=== PATIENT | female | born 1960 | race Caucasian/White ===

== ENCOUNTER 2017-10-13 22:55 | Emergency (ER) | payer MEDICAID ==
--- NOTE | 2017-10-13 23:10 | ED Physician Chart ---
ED Chief Complaint/HPI - Patient Information Date Seen:: 10/13/17 Time Seen:: 23:09 Chief Complaint:: Chest pain History of Present Illness:: 57 yo female had upper chest pain, chest pressure, and SOB 20 minutes ago. She had left neck pain, left shoulder pain, left upper extremity numbness and weakness in left hand for 3 months. In addition, she had low back pain for 3 years. ED Review of Systems - Review of Systems General/Constitutional: No fever Skin: No bruising Head: No headache Eyes: No pain ENT: No nasal drainage Neck: Neck pain Cardio Vascular: Chest pain, No palpitations Pulmonary: No SOB GI: No nausea, No vomiting Musculoskeletal: Bone or joint pain, Back pain Neurological: Paresthesia ED Past Medical History - Past Medical History Past Medical History: HTN, Other (low back pain) Social History: Smoker, No Alcohol, No Drug Use Surgical History: None Family Medical History - Family Member Mother History Unknown: Yes ED Physical Exam - Physical Examination General/Constitutional: Awake Head: Atraumatic Eyes: PERRL Skin: No ecchymosis ENMT: Nasal exam nl Other Neck comments:: posterior neck pain, left Spurling test positive Respiratory: No Wheeze/Rhonchi/Rales Cardio Vascular: RRR, No murmur, gallop, rubs, NL S1 S2 GI: No tenderness/rebounding/guarding Extremities: Full ROM, No edema Neuro/Psych: Alert/oriented, Normal gait ED Labs/Radiology/EKG Results - Lab Results Results: Laboratory Last Values WBC 10.1 Th/cmm (4.8-10.8) 10/13/17 23:45 RBC 4.09 Mil/cmm (3.80-5.10) 10/13/17 23:45 Hgb 12.3 gm/dL (12-16) 10/13/17 23:45 Hct 36.7 % (41.0-60) L 10/13/17 23:45 MCV 89.9 fl (81-100) 10/13/17 23:45 MCH 30.2 pg (27.0-31.0) 10/13/17 23:45 MCHC Differential 33.6 pg (28.0-36.0) 10/13/17 23:45 RDW 12.6 % (11.5-20.0) 10/13/17 23:45 Plt Count 356 Th/cmm (150-400) 10/13/17 23:45 MPV 7.6 fl 10/13/17 23:45 Neutrophils % 65.1 % (40.0-80.0) 10/13/17 23:45 Lymphocytes % 28.3 % (20.0-50.0) 10/13/17 23:45 Monocytes % 5.2 % (2.0-10.0) 10/13/17 23:45 Eosinophils % 1.3 % (0.0-5.0) 10/13/17 23:45 Basophils % 0.1 % (0.0-2.0) 10/13/17 23:45 Sodium 140 mEq/L (136-145) 10/13/17 23:45 Potassium 3.3 mEq/L (3.5-5.1) L 10/13/17 23:45 Chloride 103 mEq/L (98-107) 10/13/17 23:45 Carbon Dioxide 29.4 mEq/L (21.0-31.0) 10/13/17 23:45 Anion Gap 10.9 (7.0-16.0) 10/13/17 23:45 BUN 12 mg/dL (7-25) 10/13/17 23:45 Creatinine 0.7 mg/dL (0.6-1.2) 10/13/17 23:45 Est GFR ( Amer) > 60.0 ml/min (>90) 10/13/17 23:45 Est GFR (Non-Af Amer) > 60.0 ml/min 10/13/17 23:45 BUN/Creatinine Ratio 17.1 10/13/17 23:45 Glucose 119 mg/dL (70-105) H 10/13/17 23:45 Calcium 9.4 mg/dL (8.6-10.3) 10/13/17 23:45 Total Bilirubin 0.3 mg/dL (0.3-1.0) 10/13/17 23:45 AST 21 U/L (13-39) 10/13/17 23:45 ALT 23 U/L (7-52) 10/13/17 23:45 Alkaline Phosphatase 62 U/L (34-104) 10/13/17 23:45 Troponin I < 0.01 ng/mL (0.01-0.05) L 10/13/17 23:45 B-Natriuretic Peptide 8.3 pg/mL (5.0-100.0) 10/13/17:45 Total Protein 7.1 gm/dL (6.0-8.3) 10/13/17 Albumin 4.5 gm/dL (3.7-5.3) 10/13/17 Globulin 2.6 gm/dL 10/13/17 Albumin/Globulin Ratio 1.7 (1.0-1.8) 10/13/17: Urine Source RANDOM 10/13/17 23: Urine Color YELLOW 10/13/17: Urine Clarity CLEAR (CLEAR) 10/13/17: Urine pH 6.5 (4.6 - 8.0) 10/13/17 23: Ur Specific [place] <= 1.005 (1.005-1.030) 10/13/17 23: Urine Protein NEGATIVE mg/dL (NEGATIVE) 10/13/17: Urine Glucose (UA) NEGATIVE mg/dL (NEGATIVE) 10/13/17 23: Urine Ketones NEGATIVE mg/dL (NEGATIVE) 10/13/17 23: Urine Blood SMALL (NEGATIVE) H 10/13/17 23: Urine Nitrate NEGATIVE (NEGATIVE) 10/13/17 23: Urine Bilirubin NEGATIVE (NEGATIVE) 10/13/17 23: Urine Urobilinogen 0.2 E.U./dL (0.2 - 1.0) 10/13/17 23: Ur Leukocyte Esterase NEGATIVE (NEGATIVE) 10/13/17 23: Urine RBC 0-2 /hpf (0-5) 10/13/17 23:05 Urine WBC 2-5 /hpf (0-5) 10/13/17 23:05 Ur Epithelial Cells RARE /lpf (FEW) 10/13/17 23:05 Urine Bacteria FEW /hpf (NONE SEEN) 10/13/17 23: - Radiology Results Results: CXR: no focal consolidation C-spine X ray: mild to moderate degenerative changes especially at C7-T1 level ED Assessment - Assessment General Assessment: Cervicalgia Left cervical radiculopathy Hypertension Assessment/Comments:: CBC, CMP, Trop I, BNP, UA CXR, EKG C-spine X ray Aspirin 350mg po x 1 Hydralazine 10mg IV x 1 Amlodipine 5mg po x 1 Toradol 30mg IM x 1 D/c home Amlodipine 5mg qd #30 F/u PCP for hypertension, neck pain, and possible C-spine MRI ED Septic Shock - . Is Septic Shock (SBP<90, OR Lactate>4 mmol\L) present?: No ED Reassessment (Disposition) - Reassessment Reassessment Condition:: Improved - Patient Disposition Discharge/Transfer:: Home ED Discharge Plan - Patient Disposition Admit/Discharge/Transfer: PT DISCHARGED HOME Prescriptions: amLODIPine Besylate [Norvasc] 5 mg PO DAILY #30 tab Instructions: Hypertension, [id number], Cervical Radiculopathy, [id number] Additional Instructions: MAKE A FOLLOW UP WITH PRIMARY MEDICAL DOCTOR TOMORROW, COMPLY WITH PRESCRIBED MEDICATION, GO BACK TO EMERGENCY ROOM IF SYMPTOMS WORSEN.
[2017-10-13 23:51] LABS: URINE MICROSCOPIC INDICATED? YES; URINE SOURCE RANDOM
[2017-10-13 23:53] LABS: % BASOPHILS 0.1 % (0.0-2.0); % EOSINOPHILS 1.3 % (0.0-5.0); % LYMPHOCYTES 28.3 % (20.0-50.0); % MONOCYTES 5.2 % (2.0-10.0); % NEUTROPHILS 65.1 % (40.0-80.0); EOSINOPHILE ABSOLUTE 0.1 Th/cmm (0.1-0.4); HEMATOCRIT 36.7 % (41.0-60); HEMOGLOBIN 12.3 gm/dL (12-16); LYMPHOCYTE ABSOLUTE 2.9 Th/cmm (1.5-3.0); MEAN CELL VOLUME 89.9 fl (81-100); MEAN CORPUSCULAR HEMOGLOBIN 30.2 pg (27.0-31.0); MEAN CORPUSCULAR HGB CONC 33.6 pg (28.0-36.0); MEAN PLATELET VOLUME 7.6 fl; MONOCYTE ABSOLUTE 0.5 Th/cmm (0.3-1.0); NEUTROPHILE ABSOLUTE 6.6 Th/cmm (1.8-8.0); PLATELET COUNT 356 Th/cmm (150-400); RED BLOOD COUNT 4.09 Mil/cmm (3.80-5.10); RED CELL DISTRIBUTION WIDTH 12.6 % (11.5-20.0); WHITE BLOOD COUNT 10.1 Th/cmm (4.8-10.8)
[2017-10-13 23:56] LABS: URINE BILIRUBIN NEGATIVE (NEGATIVE); URINE BLOOD SMALL (NEGATIVE); URINE GLUCOSE (UA) NEGATIVE (NEGATIVE); URINE KETONE NEGATIVE (NEGATIVE); URINE LEUKOCYTE ESTERASE NEGATIVE (NEGATIVE); URINE NITRATE NEGATIVE (NEGATIVE); URINE PH 6.5 (4.6 - 8.0); URINE PROTEIN NEGATIVE (NEGATIVE); URINE UROBILINOGEN 0.2 E.U./dL (0.2 - 1.0)
[2017-10-14 00:02] LABS: URINE COLOR YELLOW
[2017-10-14 00:03] LABS: URINE CLARITY CLEAR (CLEAR)
[2017-10-14 00:12] LABS: ALB/GLOB RATIO 1.7 (1.0-1.8); ALBUMIN 4.5 gm/dL (3.7-5.3); ALKALINE PHOSPHATASE 62 U/L (34-104); ANION GAP 10.9 (7.0-16.0); BILIRUBIN,TOTAL 0.3 mg/dL (0.3-1.0); BUN - UREA NITROGEN 12 mg/dL (7-25); CALCIUM SERUM 9.4 mg/dL (8.6-10.3); CARBON DIOXIDE 29.4 mEq/L (21.0-31.0); CHLORIDE 103 mEq/L (98-107); CREATININE - SERUM 0.7 mg/dL (0.6-1.2); GFR AFRICAN-AMERICAN > 60.0 ml/min (>90); GFR NON AFRICAN-AMERICAN > 60.0 ml/min; GLUCOSE 119 mg/dL (70-105); POTASSIUM SERUM 3.3 mEq/L (3.5-5.1); SGOT 21 U/L (13-39); SGPT/ALT 23 U/L (7-52); SODIUM SERUM 140 mEq/L (136-145); TOTAL PROTEIN,SERUM 7.1 gm/dL (6.0-8.3)
[2017-10-14 00:14] LABS: URINE BACTERIA FEW /hpf (NONE SEEN); URINE EPITHELIAL CELLS RARE /lpf (FEW); URINE RBC 0-2 /hpf (0-5)
--- NOTE | 2017-10-14 09:15 | Diagnostic Imaging Report ---
CHEST X-RAY: AP view INDICATION: Shortness of breath COMPARISON: None FINDINGS: There is mild accentuation of interstitial lung markings. There is no focal consolidation or pleural effusions The heart is normal in size. The osseous structures demonstrate no acute abnormalities. IMPRESSION: Mild nonspecific accentuation of interstitial lung markings. No focal consolidation is identified..
--- NOTE | 2017-10-14 09:23 | Diagnostic Imaging Report ---
Cervical spine 5 views Indication: pain Comparison: none Findings: An earring is noted. Mild to moderate generalized degenerative changes are noted. No evidence of an acute compression fracture or subluxation. There is straightening of the cervical lordosis. Mild prominent transverse processes of C7 are noted. No prevertebral soft tissue swelling. There is calcific density seen along the neural foramina of C7 and T1. Impression: No evidence of an acute compression fracture or subluxation. If there has been history of trauma, consider further assessment CT cervical spine examination. Mild to moderate degenerative changes. Density/possible calcification seen along the C7/T1 neural foramina, nonspecific, and may be related to projection. If there is concern for neural foraminal encroachment or pathology in this region, CT or MRI may also be obtained for further assessment. In the setting of trauma, if clinical symptoms persist and there is continued concern for an occult fracture, follow up exams in 5-7 days is suggested.
== END 2017-10-14 02:00 | disposition home or self-care (01) ==
LOC: ER 22:55
DX: R07.9 Chest pain, unspecified (principal); I10 Essential (primary) hypertension; F17.200 Nicotine dependence, unspecified, uncomplicated
CPT/HCPCS: 99285; 96372; 93005; 71045; 72050; 84484; 83880; 36415; 85025; 81001; 80053; J1885; 81003-TC; J0360

== ENCOUNTER 2018-01-19 14:13 | Inpatient (IN) | payer MEDICAID ==
[2018-01-19 15:07] LABS: % BASOPHILS 1.3 % (0.0-2.0); % EOSINOPHILS 0.1 % (0.0-5.0); % LYMPHOCYTES 9.6 % (20.0-50.0); % MONOCYTES 0.9 % (2.0-10.0); % NEUTROPHILS 88.1 % (40.0-80.0); BASOPHILE ABSOLUTE 0.2 Th/cumm (0-0.2); HEMOGLOBIN 11.8 gm/dL (12-16); LYMPHOCYTE ABSOLUTE 1.3 Th/cmm (1.5-3.0); MEAN CELL VOLUME 89.3 fl (81-100); MEAN CORPUSCULAR HEMOGLOBIN 30.9 pg (27.0-31.0); MEAN CORPUSCULAR HGB CONC 34.6 pg (28.0-36.0); MEAN PLATELET VOLUME 7.5 fl; MONOCYTE ABSOLUTE 0.1 Th/cmm (0.3-1.0); NEUTROPHILE ABSOLUTE 11.7 Th/cmm (1.8-8.0); PLATELET COUNT 311 Th/cmm (150-400); RED BLOOD COUNT 3.81 Mil/cmm (3.80-5.10); RED CELL DISTRIBUTION WIDTH 12.1 % (11.5-20.0)
[2018-01-19 15:11] LABS: WHITE BLOOD COUNT 13.3 Th/cmm (4.8-10.8)
--- NOTE | 2018-01-19 15:15 | ED Physician Chart ---
ED Chief Complaint/HPI - Patient Information Date Seen:: 01/19/18 Time Seen:: 14:55 Chief Complaint:: Dizziness History of Present Illness:: onset x 3 days of weakness, dizziness, Chest Pain, N/V x3; and vertigo; pt denies trauma, H/As, tinnitus, hearing loss, E/As, S/T, neck pain, cough, SOB, Abd. Pain, A/D/C, fever, chills, or urinary s/s Allergies:: Allergies Allergy/AdvReac Type Severity Reaction Status Date / Time No Known Allergies Allergy Verified 10/13/17 23:12 Vitals:: Vital Signs - 8 hr 01/19/18 14:55 Temp 97.6 F HR 58 RR 16 BP 97/58 O2 Sat % 99 Historian:: Patient, Family Member Review:: Nurse's Note Reviewed ED Review of Systems - Review of Systems General/Constitutional: No fever, No chills, No weight loss, Weakness, No diaphoresis, No edema, No loss of appetite Skin: No skin lesions, No rash, No bruising Head: No headache, No light-headedness Eyes: No loss of vision, No pain, No diplopia ENT: No earache, No nasal drainage, No sore throat, No tinnitus Neck: No neck pain, No swelling, No thyromegaly, No stiffness, No mass noted Cardio Vascular: Chest pain, Palpitations, No PND, No orthopnea, No edema Pulmonary: No SOB, No cough, No sputum, No wheezing GI: Nausea, Vomiting, Diarrhea, No pain, No melena, No hematochezia, No constipation, No hematemesis G/U: No dysuria, No frequency, No hematuria, No nacturia [employer] Professional: No vaginal discharge, No abnormal vaginal bleed, No contraction Musculoskeletal: No bone or joint pain, No back pain, No muscle pain Endocrine: No polyuria, No polydipsia Psychiatric: No prior psych history, No depression, No anxiety, No suicidal ideation, No homicidal ideation, No auditory hallucination, No visual hallucination Hematopoietic: No bruising, No lymphadenopathy Allergic/Immuno: No urticaria, No angioedema Neurological: No syncope, No focal symptoms, No weakness, No paresthesia, No headache, No seizure, No dizziness, No confusion, No vertigo ED Past Medical History - Past Medical History Obtainable: Yes Past Medical History: HTN, Dyslipidemia Family History: HTN Social History: Non Smoker, No Alcohol, No Drug Use, Surgical History: None Psychiatricy History: None Medication: Reviewed Family Medical History - Family Member Mother History Unknown: Yes ED Physical Exam - Physical Examination General/Constitutional: Awake, Well-developed, well-nourished, Alert, No distress, GCS 15, Non-toxic appearing, Ambulatory Head: Atraumatic Eyes: Lids, conjuctiva normal, PERRL, EOMI Skin: Nl inspection, No rash, No skin lesions, No ecchymosis, Well hydrated, No lymphadenopathy ENMT: External ears, nose nl, TM canals nl, Nasal exam nl, Lips, teeth, gums nl , Oropharynx nl, Tonsils nl Neck: Nontender, Full ROM w/o pain, No JVD, No nuchal rigidity, No bruit, No mass, No stridor Respiratory: Nl effort/Exclusion, Clear to Auscultation, No Wheeze/Rhonchi/Rales Cardio Vascular: RRR, No murmur, gallop, rubs, NL S1 S2, Carotid/Femoral/Distal pulses equal bilaterally GI: No tenderness/rebounding/guarding, No organomegaly, No hernia, Normal BS's, Nondistended, No mass/bruits, No McBurney tenderness : No CVA tenderness Extremities: No tenderness or effusion, Full ROM, normal strength in all extremities, No edema, Normal digits & nails Neuro/Psych: Alert/oriented, DTR's symmetric, Normal sensory exam, Normal motor strength, Judgement/insight normal, Mood normal, Normal gait, No focal deficits Misc: Normal back, No paraspinal tenderness ED Labs/Radiology/EKG Results - Lab Results Comments:: WBC: 13.3; H/H: 11.8/34; Na+: 132; Troponin: 2.71 - EKG Interpretations EKG Time:: 14:25 Rate & Rhythm: 55; SB Comments:: non-specific st-t changes ED Septic Shock - . Is Septic Shock (SBP<90, OR Lactate>4 mmol\L) present?: No - <6hrs of presentation: Vital Signs: Vital Signs - 8 hr 01/19/18 14:55 Temp 97.6 F HR 58 RR 16 BP 97/58 O2 Sat % 99 ED Reassessment (Disposition) - Reassessment Reassessment Condition:: Improved - Diagnosis Diagnosis:: Dx: Leukocytosis; Anemia; Hyponatremia; Myocardial Ischemia; Chest Pain; N/V/D; Dizziness; Vertigo - Aftercare/Follow up Instructions Aftercare/Follow-Up Instructions:: Counseled pt regarding lab results/diagnosis & need follow up, Counseled pt & family regarding lab results/diagnosis & need follow up - Patient Disposition Discharge/Transfer:: Acute Care w/in this hosp Accepting Physician:: Dr. Rodas Time Called:: 1630 Time Responded:: 16:30 Admitted to:: Telemetry Spoke to:: Dr. Rodas Admitting Medical Physician:: Dr. Rodas Condition at Disposition:: Stable, Improved
[2018-01-19] MEDS ORDERED: Sodium Chloride 0.9% 1,000 ML IV ONE (15:16)
[2018-01-19 15:25] LABS: PROTHROMBIN TIME (TEST) 10.4 SECONDS (9.5-11.5)
[2018-01-19 15:31] LABS: ALB/GLOB RATIO 1.7 (1.0-1.8); ALKALINE PHOSPHATASE 59 U/L (34-104); ANION GAP 11.5 (7.0-16.0); BILIRUBIN,TOTAL 0.4 mg/dL (0.3-1.0); BUN - UREA NITROGEN 21 mg/dL (7-25); CALCIUM SERUM 9.2 mg/dL (8.6-10.3); CARBON DIOXIDE 26.7 mEq/L (21.0-31.0); CHLORIDE 98 mEq/L (98-107); CHOLESTEROL 178 mg/dL (<200); CREATININE - SERUM 0.6 mg/dL (0.6-1.2); CREATININE KINASE 429 U/L (30-223); GFR AFRICAN-AMERICAN > 60.0 ml/min (>90); GFR NON AFRICAN-AMERICAN > 60.0 ml/min; GLUCOSE 115 mg/dL (70-105); HDL -HIGH DENSITY LIPOPROTEIN 41 mg/dL (23-92); POTASSIUM SERUM 4.2 mEq/L (3.5-5.1); SGOT 43 U/L (13-39); SGPT/ALT 13 U/L (7-52); SODIUM SERUM 132 mEq/L (136-145); TOTAL PROTEIN,SERUM 6.3 gm/dL (6.0-8.3); TRIGLYCERIDES 122 mg/dL (<150)
[2018-01-19 15:41] LABS: AMYLASE SERUM 44 U/L (29-103); LIPASE 46 U/L (11-82)
[2018-01-19] MEDS ORDERED: Aspirin 81mg Chewable Tab PO STA (15:45)
[2018-01-19] MEDS ORDERED: Aspirin 81mg Chewable Tab ONE (17:09)
[2018-01-19] MEDS ORDERED: Lovenox 1 mg/kg Q12H 1 Each Miscellaneous SUBQ SCH (19:34)
[2018-01-19] MEDS ORDERED: Enoxaparin 60 mg/0.6 mL 0.6mL Syr SUBQ ONE (19:37)
[2018-01-19] MEDS: Enoxaparin 60 mg/0.6 mL 0.6mL Syr SUBQ SCH (22:07)
--- NOTE | 2018-01-19 23:11 | History & Physical ---
ADMIT DATE: 01/19/2018 CHIEF COMPLAINT: Chest pain. HISTORY OF PRESENT ILLNESS: The patient is a 57-year-old female with long history of hypertension, chronic back pain, presented to the Emergency Room with chest pain, evaluated by the ER physician, admitted to the hospital for more workup. Initial workup significant for elevation of the troponin 2.71. Otherwise, EKG is normal. The pain at the substernal area. No shortness of breath, no fever, no chills. When I saw the patient, she was free of pain. PAST MEDICAL HISTORY: Significant for chronic back pain and hypertension. PAST SURGICAL HISTORY: Back surgery. ALLERGIES: None. MEDICATIONS: Follow admission reconciliation. SOCIAL HISTORY: Nonsmoker, no alcohol, no drugs. FAMILY HISTORY: Noncontributory. REVIEW OF SYSTEMS: IMMUNOSYSTEM: No history of chronic renal disorder. CARDIOVASCULAR SYSTEM: She has history of hypertension. ENDOCRINE SYSTEM: No diabetes or thyroid problem. GASTROINTESTINAL SYSTEM: No upper or lower gastrointestinal bleed. NEUROLOGICAL SYSTEM: No seizure disorder. MUSCULOSKELETAL SYSTEM: She has chronic back pain. PHYSICAL EXAMINATION: GENERAL: She is awake, alert, oriented, not in pain or distress. VITAL SIGNS: Temperature 98, heart rate 58, and blood pressure 97/57. HEENT: Normocephalic. Pupils reactive to light and accommodation. Sclerae clear. NECK: Supple. Negative for lymphadenopathy, JVD, or bruit. CHEST: Entry of air bilaterally normal. No rhonchi or wheezing. HEART: S1, S2 normal, no gallop rhythm. ABDOMEN: Soft, bowel sounds positive. EXTREMITIES: No edema. NEUROLOGIC: She is awake, alert, and oriented. No focal motor or sensory deficit. Cranial nerves II through XII is intact. LABORATORY DATA: White blood 13.3, hemoglobin 11.8, hematocrit 34, and platelet is 311. INR 1.0. Sodium 132 and potassium 4.2. Troponin 2.71. EKG normal. ASSESSMENT: 1. Chest pain. 2. Hypertension. 3. Chronic back pain. 4. Mild anemia. PLAN: The patient is admitted to telemetry under Dr. Rodas's service, started on Lovenox 1 mg per kilogram subcutaneous q.12h. Cardiac diet. CPK, troponin every 8 hours x3. EKG in a.m. Dr. Pedro Carreon consulted on the case. The patient is a full code. Case discussed with the family at bedside. JOB# [id number]
[2018-01-20] MEDS ORDERED: Nitroglycerin 50mg/D5W Premix 50 MG/250 ML INFUS..BTL IV PRN (00:29)
[2018-01-20 01:23] VITALS: BP 93/55
[2018-01-20 05:42] LABS: CHOLESTEROL 180 mg/dL (<200); HDL -HIGH DENSITY LIPOPROTEIN 40 mg/dL (23-92); TRIGLYCERIDES 162 mg/dL (<150)
[2018-01-20] MEDS ORDERED: D5-0.45NS 1,000 ML IV SCH (08:45)
--- NOTE | 2018-01-20 08:55 | Diagnostic Imaging Report ---
Portable chest x-ray HISTORY: Pain The heart size difficult to assess with portable technique. No focal pulmonary processes. No hilar or mediastinal abnormalities. IMPRESSION: No acute pulmonary abnormalities
[2018-01-20] MEDS ORDERED: Aspirin 81mg Chewable Tab PO SCH (09:45)
[2018-01-20] MEDS: Enoxaparin 60 mg/0.6 mL 0.6mL Syr SUBQ SCH (09:59)
--- NOTE | 2018-01-20 10:38 | Internal Medicine Prog Note ---
Internal Medicine Subjective - Subjective Service Date: 01/20/18 Patient seen and examined:: with staff (SHE DENIES ANY CHEST PAIN OR SOB.) Patient is:: awake, verbal, in bed, talking Patient Complaints of:: other (FEELS WELL) Per staff patient has:: no adverse event Internal Medicine Objective - Results Result Diagrams: 01/19/18 15:00 01/19/18 15:00 Recent Labs: Laboratory Last Values WBC 13.3 Th/cmm (4.8-10.8) H 01/19/18 15:00 RBC 3.81 Mil/cmm (3.80-5.10) 01/19/18 15:00 Hgb 11.8 gm/dL (12-16) L 01/19/18 15:00 Hct 34.0 % (41.0-60) L 01/19/18 15:00 MCV 89.3 fl (81-100) 01/19/18 15:00 MCH 30.9 pg (27.0-31.0) 01/19/18 15:00 MCHC Differential 34.6 pg (28.0-36.0) 01/19/18 15:00 RDW 12.1 % (11.5-20.0) 01/19/18 15:00 Plt Count 311 Th/cmm (150-400) 01/19/18 15:00 MPV 7.5 fl 01/19/18 15:00 Neutrophils % 88.1 % (40.0-80.0) H 01/19/18 15:00 Lymphocytes % 9.6 % (20.0-50.0) L 01/19/18 15:00 Monocytes % 0.9 % (2.0-10.0) L 01/19/18 15:00 Eosinophils % 0.1 % (0.0-5.0) 01/19/18 15:00 Basophils % 1.3 % (0.0-2.0) 01/19/18 15:00 PT 10.4 SECONDS (9.5-11.5) 01/19/18 15:00 INR 1.00 (0.5-1.4) 01/19/18 15:00 Sodium 132 mEq/L (136-145) L 01/19/18 15:00 Potassium 4.2 mEq/L (3.5-5.1) 01/19/18 15:00 Chloride 98 mEq/L (98-107) 01/19/18 15:00 Carbon Dioxide 26.7 mEq/L (21.0-31.0) 01/19/18 15:00 Anion Gap 11.5 (7.0-16.0) 01/19/18 15:00 BUN 21 mg/dL (7-25) 01/19/18 15:00 Creatinine 0.6 mg/dL (0.6-1.2) 01/19/18 15:00 Est GFR ( Amer) > 60.0 ml/min (>90) 01/19/18 15:00 Est GFR (Non-Af Amer) > 60.0 ml/min 01/19/18 15:00 BUN/Creatinine Ratio 35.0 01/19/18 15:00 Glucose 115 mg/dL (70-105) H 01/19/18 15:00 Whole Bld Lactic Acid 0.93 mmol/L (0.60-1.99) 01/19/18 15:00 Calcium 9.2 mg/dL (8.6-10.3) 01/19/18 15:00 Total Bilirubin 0.4 mg/dL (0.3-1.0) 01/19/18 15:00 AST 43 U/L (13-39) H 01/19/18 15:00 ALT 13 U/L (7-52) 01/19/18 15:00 Alkaline Phosphatase 59 U/L (34-104) 01/19/18 15:00 Creatine Kinase 1175 U/L (30-223) H 01/20/18 04:10 CK-MB (CK-2) 128.7 ng/mL (0.6-6.3) H 01/20/18 04:10 Troponin I 26.65 ng/mL (0.01-0.05) H* D 01/20/18 04:10 B-Natriuretic Peptide 71.5 pg/mL (5.0-100.0) 01/19/18 15:00 Total Protein 6.3 gm/dL (6.0-8.3) 01/19/18 15:00 Albumin 4.0 gm/dL (3.7-5.3) 01/19/18 15:00 Globulin 2.3 gm/dL 01/19/18 15:00 Albumin/Globulin Ratio 1.7 (1.0-1.8) 01/19/18 15:00 Triglycerides 162 mg/dL (<150) H 01/20/18 04:10 Cholesterol 180 mg/dL (<200) 01/20/18 04:10 LDL Cholesterol Direct 126 mg/dL (75-193) 01/20/18 04:10 HDL Cholesterol 40 mg/dL (23-92) 01/20/18 04:10 Amylase 44 U/L (29-103) 01/19/18 15:00 Lipase 46 U/L (11-82) 01/19/18 15:00 Serum , Qual NEGATIVE (NEGATIVE) 01/19/18 15:00 - Physical Exam Vitals and I&O: Vital Signs Temp 97.8 F 01/20/18 04:00 Pulse 66 01/20/18 07:00 Resp 20 01/20/18 07:00 BP 106/64 01/20/18 07:00 Pulse Ox 98 01/20/18 07:00 Intake & Output 01/19/18 01/20/18 01/20/18 18:59 06:59 18:59 Intake Total 1000 250 Output Total 700 Balance 1000 -450 Weight (lbs) 62.142 kg 60.101 kg Intake: Intake, IV Amount 1000 Sodium Chloride 0.9% 1, 1000 000 ml @ 100 mls/hr IV . Q10H ONE Rx#:[id number] Oral 250 Output: Urine 700 Other: # Voids 1 Weight Source Estimated Bedscale Active Medications: Current Medications Aspirin (Aspirin Chewable) 81 mg PO DAILY [facility] Stop: 03/21/18 09:44 Last Admin: 01/20/18 10:04 Dose: 81 mg Baclofen (Lioresal) 10 mg PO Q8H PRN PRN Reason: MUSCLE SPASM Stop: 03/20/18 22:38 Enoxaparin Sodium (Lovenox) 60 mg SUBQ Q12HR [facility] Stop: 03/20/18 20:59 Last Admin: 01/20/18 09:59 Dose: 60 mg Nitroglycerin/Dextrose (Nitroglycerin 50mg/Dextrose 5% Premix) 50 mg in 250 mls @ 0 mls/hr IV TITR PRN; Protocol; Titrate PRN Reason: BP MAINTENANCE Stop: 03/21/18 00:28 Dextrose/Sodium Chloride (D5-0.45ns) 1,000 mls @ 50 mls/hr IV .Q20H [facility] Stop: 03/21/18 08:44 Last Admin: 01/20/18 10:01 Dose: 50 mls/hr Lisinopril (Zestril) 10 mg PO DAILY [facility] Stop: 03/21/18 08:59 Miscellaneous (Lovenox 1 Mg/Kg Q12h) 1 ea SUBQ Q12H [facility] PRN Reason: Protocol Stop: 03/20/18 19:33 Nitroglycerin (Nitrostat) 0.4 mg SL Q5MIN PRN PRN Reason: Chest Pain Stop: 03/20/18 19:33 Tramadol HCl (Ultram) 50 mg PO TID [facility] Stop: 03/21/18 08:59 General: alert HEENT: NC/AT, PERRLA, EOMI, anicteric sclerae, throat clear Neck: No JVD, No thyromegaly, +2 carotid pulse wo bruit, No LAD Lungs: CTAB Cardiovascular: Normal S1, Normal S2, without murmur Abdomen: non-tender, non-distended Extremities: clear Neurological: no change Internal Medicine Assmt/Plan - Assessment Assessment: 1.ACUTE NSEMI 2.HTN - Plan Plan: THE INSURANCE WANTS HER TO GO TO [facility] FOR CARDIAC WORK UP.I TRIED TO TALK TO THE PHYSICIAN TRAFFIC COURT REFEREE.I LEFT A MESSAGE AND MY TEL.NO.
--- NOTE | 2018-01-20 21:22 | Consultation ---
DATE OF CONSULTATION: 01/20/[address] Rodas. HISTORY AND PHYSICAL: This 57 years old female patient who was brought to the Emergency Room complaining of dizziness, vertigo, chest pain. Following this, the patient also had slightly elevated troponin level in the Emergency Room, and the patient was admitted to [facility], following this, repeat lab consistently developed elevated troponin level and the patient was transferred to ICU with nitroglycerin drip. The patient became hypotensive and nitroglycerin was stopped. The patient had a CPK elevated to 1175 with troponin level of 26.6. The patient at the present time has no chest pain. PAST MEDICAL HISTORY: Hyperlipidemia. FAMILY HISTORY: Unremarkable. SOCIAL HISTORY: No history of smoking, alcohol abuse. ALLERGIES: No known allergies. PHYSICAL EXAMINATION: VITAL SIGNS: Blood pressure 90 systolic, pulse 80, respirations 20. HEAD: Normocephalic. No lumps or bumps. EYES: Pupils equal, reactive to light. Fundi show AV nicking, sclerae white, conjunctivae pink. NECK: Carotid 2+. Normal upstroke. JVD flat. Thyroid not palpable. Lymph nodes palpable. CHEST: Shows increased AP diameter. No kyphosis, scoliosis. LUNGS: Bilateral bronchovesicular breath sounds. HEART: PMI fifth intercostal space with lateral to midclavicular line. S1, S2. No S3, S4, soft systolic murmur. ABDOMEN: Soft. Liver and spleen not palpable. No organomegaly. Bowel sounds active. NEUROLOGIC: No focal neurological deficit. EXTREMITIES: Peripheral pulse is 2+. No pedal edema. CLINICAL IMPRESSION: 1. Nonsustained elevation myocardial infarction. 2. Vertigo. 3. Hyperlipidemia. 4. Hypotension. PLAN: At the present time, we will continue present management, anticoagulate the patient with the Lovenox and if the blood pressure permits to start on Coreg and nitroglycerin drip. The patient needs to be transferred to cardiac brine room laborer. The patient's insurance be notified for the transfer. The patient's condition discussed with the patient and the daughter at length at the bedside. JOB# [id number]
--- NOTE | 2018-01-23 09:20 | Cardiology ---
01/20/2018 PATIENT OF: Dr. Rodas PROCEDURE: Echocardiogram. M-MODE ECHOCARDIOGRAM: Mitral valve, anterior leaflet of valve shows normal excursion, EF velocity. Posterior leaflet of the mitral valve shows normal excursion. Left ventricular posterior wall showed normal thickness and excursion. Interventricular septum showed normal thickness and excursion. Ejection fraction 72%. Left atrium normal. Aortic root shows normal dimension, normal excursion of aortic leaflets. CONCLUSION: Normal M-mode echo. 2D ECHO: Long axis view showed normal-sized left ventricle with normal wall motion, mitral valve shows normal excursion. Left atrium normal. Aortic root shows normal dimension, normal excursion of aortic leaflets. Short axis view of mitral valve normal. Short axis view of aortic valve normal. Apical four chamber view showed normal-sized left ventricle, left atrium, right ventricle, right atrium, tricuspid, and mitral valve. Ejection fraction 72%. CONCLUSION: Normal 2D echo, ejection fraction 72%. Doppler study shows moderate mitral regurgitation, trace tricuspid regurgitation, mild pulmonary regurgitation. [facility]# [id number]
== END 2018-01-20 19:50 | disposition short-term general hospital (02) | DRG 190 ==
LOC: ER 14:13 → TELE 18:15 → ICU 01-20
PROVIDERS: ADMIT Family Medicine; ATTEND Family Medicine
DX: I21.4 Non-ST elevation (NSTEMI) myocardial infarction (principal); I95.9 Hypotension, unspecified; E87.1 Hypo-osmolality and hyponatremia; D64.9 Anemia, unspecified; I10 Essential (primary) hypertension; E78.5 Hyperlipidemia, unspecified; G89.29 Other chronic pain; M54.9 Dorsalgia, unspecified; D72.829 Elevated white blood cell count, unspecified; I25.9 Chronic ischemic heart disease, unspecified; Z71.89 Other specified counseling; Z82.49 Family history of ischemic heart disease and other diseases of the circulatory system
CPT/HCPCS: 36415-UA; 71045-TC; 80053-TC; 80061-TC; 82150-TC; 82550-TC; 82553; 83605; 83690-TC; 83880-TC; 84484-TC; 84703-TC; 85025-TC; 85610-TC; 93005; J1650; J7030; Z7610